=== PATIENT | male | born 1975 | race Caucasian/White ===

== ENCOUNTER 2017-01-26 22:43 | Emergency (ER) | payer MEDICAID, MEDICARE ==
[~2017-01-26] VITALS: Ht 177.8 cm; Wt 99.8 kg
[~2017-01-26 22:43] MED LIST: ARIP10TA15 PO; ATOR40TA PO; CARI350T PO; CLON2TAB PO; DULO60CA45 PO; PROP20TA7 PO; TRAM50TA2 PO
[2017-01-26] MEDS ORDERED: ASPIRIN 325 MG TABLET PO ONE (23:15)
[2017-01-26] MEDS ORDERED: CEFTRIAXONE 1 G VIAL IM ONE (23:15)
[2017-01-26] MEDS ORDERED: CEFTRIAXONE 1 G VIAL ONE (23:18)
[2017-01-26] MEDS ORDERED: LIDOCAINE HCL 1% 20 ML VIAL ONE (23:18)
--- NOTE | 2017-01-26 23:22 | NUR ---
Patient discharged to home in stable conditon. Written and verbal after care instructions given. Patient verbalizes understanding of instructions.
== END 2017-01-26 23:23 | disposition home or self-care (01) ==
LOC: ER 22:43
DX: J02.9 Acute pharyngitis, unspecified (principal); I10 Essential (primary) hypertension; F41.9 Anxiety disorder, unspecified; F32.9 Major depressive disorder, single episode, unspecified
CPT/HCPCS: 96372; 99283; A4663; J0696; J3490

== ENCOUNTER 2019-12-12 03:41 | Emergency (ER) | payer SELFPAY ==
[~2019-12-12] VITALS: Ht 177.8 cm; Wt 108.9 kg
--- NOTE | 2019-12-12 04:08 | NUR ---
AT BEDSIDE FOR HX AND PHYS
[2019-12-12] MEDS ORDERED: KETOROLAC TROMETHAMINE 60 MG INJ IM ONE ×2 (04:11→04:15)
--- NOTE | 2019-12-12 04:16 | NUR ---
Patient discharged to home in stable conditon. Written and verbal after care instructions given. Patient verbalizes understanding of instructions.
[2019-12-12 04:18] VITALS: BP 119/85
== END 2019-12-12 04:18 | disposition home or self-care (01) ==
LOC: ER 03:49
DX: G89.29 Other chronic pain (principal); M54.9 Dorsalgia, unspecified; I10 Essential (primary) hypertension; F41.9 Anxiety disorder, unspecified; F32.9 Major depressive disorder, single episode, unspecified; Z91.041 Radiographic dye allergy status; Z79.899 Other long term (current) drug therapy
CPT/HCPCS: 96372; 99283; J1885; A4663

== ENCOUNTER 2024-03-08 23:23 | Inpatient (IN) | payer MEDICARE ==
[~2024-03-08] VITALS: Ht 180.3 cm; Wt 99.3 kg
[~2024-03-08 23:23] MED LIST changes: -ARIP10TA15 PO; +ARIP10TA9 PO
[2024-03-09] MEDS: IV NORMAL SALINE 1000 ML BAG IV ONE (00:54)
[2024-03-09] MEDS: KETOROLAC TROMETHAMINE 15 MG INJ IVP ONE (00:55)
[2024-03-09 01:11] LABS: CARBON DIOXIDE 28 mmol/L (21-32); CHLORIDE 99 mmol/L (98-107); CREATININE 1.1 mg/dL (0.6-1.3); GLUCOSE 135 mg/dL (74-106); SODIUM SERUM 136 mmol/L (136-145); UREA NITROGEN, BLOOD 17 mg/dL (7-18)
[2024-03-09 01:12] LABS: BASOPHILS % (AUTO) 0.6 % (0.0-2.0); HEMATOCRIT 43.4 % (36.7-47.1); HEMOGLOBIN 15.2 g/dL (12.5-16.3); LYMPHOCYTES # (AUTO) 1.3 K/uL (0.8-4.8); LYMPHOCYTES % (AUTO) 23.7 % (20.5-51.5); MEAN CORPUSCULAR HEMOGLOBIN 29.6 uug (23.8-33.4); MEAN CORPUSCULAR HGB CONC 35 g/dL (32.5-36.3); MEAN CORPUSCULAR VOLUME 84.7 fL (73.0-96.2); MONOCYTES # (AUTO) 0.5 K/uL (0.1-1.30); MONOCYTES % (AUTO) 9.1 % (0.0-11.0); NEUTROPHILS # (AUTO) 3.7 K/uL (1.8-8.9); NEUTROPHILS % (AUTO) 66.6 % (38.5-71.5); PLATELET COUNT (AUTO) 180 K/uL (152-348); RED BLOOD CELL COUNT(AUTO) 5.12 MIL/uL (4.06-5.63); RED CELL DISTRIBUTION WIDTH 12.4 % (12.1-16.2); WHITE BLOOD COUNT (AUTO) 5.6 K/uL (3.6-10.2)
[2024-03-09 01:20] LABS: ALANINE AMINOTRANSFERASE 39 U/L (16-63); ALBUMIN 3.3 g/dL (3.4-5.0); ALKALINE PHOSPHATASE 94 U/L (50-136); ASPARTATE AMINOTRANSFERASE 30 U/L (15-37); BILIRUBIN,DIRECT 0.1 mg/dL (0.0-0.2); BILIRUBIN,TOTAL 0.3 mg/dL (0.2-1.0); TOTAL PROTEIN, SERUM 7.7 g/dL (6.4-8.2)
[2024-03-09] MEDS ORDERED: CEFTRIAXONE /D5W 50ML IVPB **ER PYXIS IV ONE (02:25)
[2024-03-09] MEDS ORDERED: diphenhydrAMINE 25 MG CAP PO ONE (02:25)
[2024-03-09] MEDS ORDERED: KETOROLAC TROMETHAMINE 15 MG INJ ONE (02:25)
[2024-03-09] MEDS ORDERED: METOCLOPRAMIDE HCL 10 MG/2 ML VIAL ONE (02:26)
[2024-03-09] MEDS ORDERED: AZITHROMYCIN 500MG/ D5W 250ML IVPB **ER PYXIS ONLY IV ONE (02:26)
[2024-03-09] MEDS: diphenhydrAMINE 25 MG CAP PO ONE (02:30)
[2024-03-09] MEDS: METOCLOPRAMIDE HCL 10 MG/2 ML VIAL IV ONE (02:30)
[2024-03-09] MEDS: AZITHROMYCIN IV 500 MG in IV DEXTROSE 5% 250 ML IV ONE (02:30)
[2024-03-09] MEDS: CEFTRIAXONE 2 G in IV DEXTROSE 5% 100 ML IV ONE (03:00)
[2024-03-09] MEDS ORDERED: ACETAMINOPHEN ES 500 MG TABLET ONE (08:58)
[2024-03-09] MEDS: ACETAMINOPHEN ES 500 MG TABLET PO ONE (08:59)
[2024-03-09 11:51] VITALS: BP 107/68; TEMP 99.9; O2SAT 92
[2024-03-09] MEDS ORDERED: TRAMADOL HCL 50 MG TABLET PO PRN (12:15)
[2024-03-09] MEDS ORDERED: CARISOPRODOL 350 MG TABLET PO SCH (13:00)
[2024-03-09] MEDS ORDERED: BUPR8TAB4 SL (13:29)
[2024-03-09] MEDS ORDERED: LISI-782 PO (13:30)
[2024-03-09] MEDS ORDERED: METF-442 PO (13:30)
[2024-03-09] MEDS ORDERED: EMPA10TA PO (13:30)
[2024-03-09] MEDS ORDERED: ATOR80TA PO (13:33)
[2024-03-09] MEDS ORDERED: FLUC150T PO (13:33)
[2024-03-09] MEDS ORDERED: ALBUTEROL SULFATE 2.5 MG/ 0.5 ML NEBU NEB PRN (15:15)
[2024-03-09] MEDS ORDERED: CEFTRIAXONE 1 G in IV DEXTROSE 5% 50 ML IV SCH (15:15)
[2024-03-09] MEDS ORDERED: TEMAZEPAM 15 MG CAPSULE PO PRN (15:15)
[2024-03-09] MEDS ORDERED: ALBUTEROL SULFATE 2.5 MG/3 ML NEBU NEB PRN (15:45)
[2024-03-09] MEDS: MORPHINE SULFATE 2 MG/1 ML DISP.SYRIN IV PRN (16:20)
[2024-03-09] MEDS: ACETAMINOPHEN 325 MG TABLET PO PRN (17:00)
[2024-03-09 17:10] VITALS: BP 130/56; TEMP 101.6; O2SAT 93
[2024-03-09] MEDS: METFORMIN HCL 500 MG TABLET PO SCH (18:12)
[2024-03-09 18:48] VITALS: BP 130/56; TEMP 98.6; O2SAT 93
[2024-03-09] MEDS ORDERED: GUAIFENESIN/DEXTROMETHORPHAN 5 ML UDC PO PRN (19:15)
[2024-03-09] MEDS: ATORVASTATIN 40 MG TABLET PO SCH (20:33)
[2024-03-09] MEDS: BUPRENORPHINE HCL 2 MG TAB.SUBL SL SCH (20:43)
[2024-03-09] MEDS ORDERED: ATORVASTATIN 40 MG TABLET PO SCH (21:00)
[2024-03-09] MEDS: ENOXAPARIN SODIUM 40 MG/0.4 ML DISP.SYRIN SQ SCH (21:04)
[2024-03-09 21:11] VITALS: O2SAT 94
[2024-03-09] MEDS ORDERED: BUPRENORPHINE 8 MG PO SCH (22:00)
[2024-03-10] MEDS: CEFTRIAXONE 2 G in IV DEXTROSE 5% 100 ML IV SCH (02:16)
[2024-03-10] MEDS: AZITHROMYCIN IV 500 MG in IV DEXTROSE 5% 250 ML IV SCH (02:17)
[2024-03-10 05:51] VITALS: BP 113/70; TEMP 98.5; O2SAT 91
[2024-03-10] MEDS: PANTOPRAZOLE SODIUM 40 MG TABLET.DR PO SCH (06:31)
[2024-03-10 07:29] LABS: BASOPHILS % (AUTO) 0.3 % (0.0-2.0); EOSINOPHILS % (AUTO) 0.1 % (0.0-7.0); HEMATOCRIT 42.6 % (36.7-47.1); HEMOGLOBIN 14.9 g/dL (12.5-16.3); LYMPHOCYTES # (AUTO) 1.4 K/uL (0.8-4.8); MEAN CORPUSCULAR HEMOGLOBIN 29.5 uug (23.8-33.4); MEAN CORPUSCULAR HGB CONC 35 g/dL (32.5-36.3); MEAN CORPUSCULAR VOLUME 84.1 fL (73.0-96.2); MONOCYTES # (AUTO) 0.4 K/uL (0.1-1.30); NEUTROPHILS # (AUTO) 2.6 K/uL (1.8-8.9); NEUTROPHILS % (AUTO) 58.6 % (38.5-71.5); PLATELET COUNT (AUTO) 197 K/uL (152-348); RED BLOOD CELL COUNT(AUTO) 5.07 MIL/uL (4.06-5.63); RED CELL DISTRIBUTION WIDTH 12.1 % (12.1-16.2); WHITE BLOOD COUNT (AUTO) 4.4 K/uL (3.6-10.2)
[2024-03-10 07:43] LABS: DIFFERENTIAL COMMENT 1
[2024-03-10 07:54] LABS: ALBUMIN 3.2 g/dL (3.4-5.0); BILIRUBIN,TOTAL 0.5 mg/dL (0.2-1.0); CREATININE 0.8 mg/dL (0.6-1.3); MAGNESIUM 1.9 mg/dL (1.8-2.4); POTASSIUM 4.5 mmol/L (3.5-5.1); TOTAL PROTEIN, SERUM 7.8 g/dL (6.4-8.2)
[2024-03-10 08:00] VITALS: BP 108/69; TEMP 99.5; O2SAT 97
[2024-03-10] MEDS ORDERED: ARIPIPRAZOLE 10 MG TABLET PO SCH (09:00)
[2024-03-10] MEDS: PROPRANOLOL HCL 20 MG TABLET PO SCH (10:35)
[2024-03-10] MEDS: DULOXETINE 60 MG CAPSULE.DR PO SCH (10:35)
[2024-03-10] MEDS: JARDIANCE 10 MG PO SCH (10:44)
[2024-03-10 12:00] VITALS: BP 117/77; TEMP 99.9; O2SAT 97
[2024-03-10 13:42] LABS: THYROID STIMULATING HORMONE 0.832 mIU/mL (0.358-3.740)
[2024-03-10] MEDS: LORAZEPAM 2 MG/1 ML VIAL IV PRN (13:52)
[2024-03-10 16:00] VITALS: BP 132/69; TEMP 97.2; O2SAT 97
[2024-03-10] MEDS ORDERED: MORPHINE SULFATE 4 MG/1 ML DISP.SYRIN IV PRN (19:45)
[2024-03-10 19:50] VITALS: BP 110/76; TEMP 99.6; O2SAT 99
[2024-03-10 21:20] VITALS: O2SAT 97
[2024-03-11] VITALS (8 sets, daily range): BP systolic 108–128; BP diastolic 63–81; TEMP 98.7–99.5; O2SAT 87–97
[2024-03-11] MEDS ORDERED: LORAZEPAM 2 MG/1 ML VIAL IV PRN (08:45)
[2024-03-11 09:41] LABS: SITE, VBG LEFT RADIAL; VBG AaDO2 89.5 mmHg; VBG BASE EXCESS -3.1 mmol/L (-3-3); VBG HCO3 21.7 mmol/L (22-27); VBG MetHb 0.3 % (0.0-0.5); VBG PCO2 38.3 mmHg (41.0-54.0); VBG PH 7.372 (7.310-7.450); VBG PO2 57.9 mmHg (25.0-35.0); VBG TOTAL HEMOGLOBIN 14.2 G/dL (12.0-16.0)
[2024-03-12] MEDS: LORAZEPAM 0.5 MG TABLET PO PRN (02:11)
[2024-03-12 04:48] VITALS: O2SAT 96
[2024-03-12] MEDS ORDERED: DEXTROSE 50% 50 ML DISP.SYRIN IV PRN (06:15)
[2024-03-12 06:16] VITALS: BP 117/88; TEMP 98.2; O2SAT 94
[2024-03-12] MEDS: BLOOD SUGAR DIAGNOSTIC 1 EACH STRIP VI SCH (06:46)
[2024-03-12 07:34] LABS: BASOPHILS % (AUTO) 0.5 % (0.0-2.0); EOSINOPHILS % (AUTO) 0.1 % (0.0-7.0); HEMOGLOBIN 14.9 g/dL (12.5-16.3); LYMPHOCYTES # (AUTO) 1.4 K/uL (0.8-4.8); LYMPHOCYTES % (AUTO) 20.3 % (20.5-51.5); MEAN CORPUSCULAR HEMOGLOBIN 29.3 uug (23.8-33.4); MEAN CORPUSCULAR HGB CONC 35 g/dL (32.5-36.3); MEAN CORPUSCULAR VOLUME 84.5 fL (73.0-96.2); MONOCYTES # (AUTO) 0.9 K/uL (0.1-1.30); MONOCYTES % (AUTO) 12.4 % (0.0-11.0); NEUTROPHILS # (AUTO) 4.6 K/uL (1.8-8.9); NEUTROPHILS % (AUTO) 66.7 % (38.5-71.5); PLATELET COUNT (AUTO) 263 K/uL (152-348); RED BLOOD CELL COUNT(AUTO) 5.09 MIL/uL (4.06-5.63); RED CELL DISTRIBUTION WIDTH 12.5 % (12.1-16.2)
[2024-03-12 07:45] LABS: DIFFERENTIAL COMMENT 1
[2024-03-12] MEDS: INSULIN REGULAR, HUMAN 300 UNIT/3 ML VIAL SQ PRN (07:55)
[2024-03-12 08:00] LABS: CALCIUM 9.2 mg/dL (8.5-10.1); CREATININE 1.1 mg/dL (0.6-1.3); MAGNESIUM 2.1 mg/dL (1.8-2.4)
[2024-03-12 12:00] VITALS: BP_SYST 102; BP_SYST 147; BP_DIAS 65; BP_DIAS 67; TEMP 97.6; O2SAT 97; O2SAT 98
[2024-03-12 16:00] VITALS: BP 103/86; TEMP 97.6
[2024-03-12] MEDS ORDERED: ATORVASTATIN 20 MG TABLET PO SCH (21:00)
== END 2024-03-12 16:20 | disposition home or self-care (01) | DRG 177 ==
LOC: ER 23:26 → TELE3 03-09 09:43 → MEDSURG3 03-11 08:25
PROVIDERS: ADMIT Internal Medicine; ATTEND Internal Medicine
DX: U07.1 COVID-19 (principal); J96.01 Acute respiratory failure with hypoxia; R51.9 Headache, unspecified; I10 Essential (primary) hypertension; E11.65 Type 2 diabetes mellitus with hyperglycemia; I44.4 Left anterior fascicular block; E66.9 Obesity, unspecified; F90.9 Attention-deficit hyperactivity disorder, unspecified type; F41.9 Anxiety disorder, unspecified; F32.A Depression, unspecified; E78.5 Hyperlipidemia, unspecified; Z79.899 Other long term (current) drug therapy; Z68.30 Body mass index [BMI] 30.0-30.9, adult; R00.0 Tachycardia, unspecified; Z82.49 Family history of ischemic heart disease and other diseases of the circulatory system; Z91.041 Radiographic dye allergy status
CPT/HCPCS: 36415; 36600; 70450; 71045; 82803; 83605; 83735; 84100; 84443; 84484; 85025; 85730; 87040; 93005; A4606; A4663; A9150; G0378; J0456; J0696; J1650; J1815; J1885; J2060; J2270; J2765; J7040; J7050; Q0163

== ENCOUNTER 2025-04-18 03:11 | Emergency (ER) | payer MEDICARE ==
[~2025-04-18] VITALS: Ht 180.3 cm; Wt 107.0 kg
[~2025-04-18 03:11] MED LIST changes: -ARIP10TA9 PO; -ATOR40TA PO; +ATOR80TA PO; +BUPR8TAB4 SL; -CARI350T PO; -CLON2TAB PO; +EMPA10TA PO; +FLUC150T PO; +LISI-782 PO; +METF-442 PO; -TRAM50TA2 PO
[2025-04-18] MEDS ORDERED: DULA0.75 SQ (03:31)
[2025-04-18 05:45] VITALS: BP 123/81; TEMP 97.7; O2SAT 96
== END 2025-04-18 05:45 | disposition home or self-care (01) ==
LOC: ER 03:24
DX: S09.8XXA Other specified injuries of head, initial encounter (principal); E11.42 Type 2 diabetes mellitus with diabetic polyneuropathy; G89.29 Other chronic pain; I10 Essential (primary) hypertension; F41.9 Anxiety disorder, unspecified; F32.A Depression, unspecified; Z60.2 Problems related to living alone; Z79.84 Long term (current) use of oral hypoglycemic drugs; Z79.899 Other long term (current) drug therapy; Z88.8 Allergy status to other drugs, medicaments and biological substances; R11.0 Nausea; W18.39XA Other fall on same level, initial encounter; Y93.89 Activity, other specified; Y92.89 Other specified places as the place of occurrence of the external cause; Y99.8 Other external cause status
CPT/HCPCS: 70450; A4606; A4663